=== PATIENT | female | born 1965 | race Caucasian/White ===

== ENCOUNTER 2020-09-13 18:43 | Emergency (ER) | payer SELFPAY ==
--- NOTE | ~2020-09-13 | CT_ITS ---
EXAMINATION: CT brain wo con DATE: 09/13/2020 19:32 INDICATION: Syncope. TECHNIQUE: Computed tomography (CT) of the head was performed without intravenous contrast. The mA wa s adjusted according to patient size. Iterative reconstruction technique was employed. The dose-lengt h product was 605.33 mGy-cm. COMPARISON: None FINDINGS: There is no intracranial hemorrhage, acute infarction, or abnormal intracranial mass lesion . The ventricles are normal in size. There is mild mucosal thickening in the paranasal sinuses. The o rbits are normal. The mastoid air cells are normal. IMPRESSION: 1. Normal brain. Reviewed, dictated and finalized at location A. IMPRESSION: 1. Normal brain.
[2020-09-13 18:59] VITALS: BP 107/60; PULSE 80; RESP 18; TEMP 36.3; O2SAT 98
--- NOTE | 2020-09-13 19:10 | ECG_ITS ---
Measurements Intervals Floral Rate: 78 P: 5 OR: 174 QRS: 45 QRSD: 82 T: 65 QT: 379 QTc: 432 Interpretive Statements SINUS RHYTHM BASELINE WANDER- II, III NORMAL ECG Electronically Signed On 09-14-2020 7:11:13 CDT by Yan Horton D.O.
--- NOTE | 2020-09-13 19:10 | ED.SYNCOPE ---
HPI - Syncope General Chief Complaint: Fall Stated Complaint: nausea,dizzy,passed out Time Seen by Provider: 09/13/20 19:05 Source: patient Mode of arrival: ambulatory Limitations: no limitations History of Present Illness HPI narrative: 55-year-old woman comes in today complaining of vomiting and head injury. She states that she had an episode of vomiting last night and went to bed. She states that sometime during the night she must have fallen because she found herself on the floor with a contusion on her left forehead. She has had a few other episodes of vomiting overnight but it has been able to tolerate oral fluids since 9:00 a.m. today. She denies headache, diarrhea, abdominal pain, dysuria, fever, cough or cold symptoms, shortness of breath, chest pain, previous similar symptoms. She has no history of seizures. MD complaint: loss of consciousness Onset (ago): hour(s) (12-15) Prodromal symptoms: none Witnessed: No Context: at rest Injuries sustained associated with event: face and head Current symptoms: none Treatments prior to arrival: none Related Data Allergies Allergy/AdvReac Type Severity Reaction Status Date / Time No Known Allergies Allergy Unverified 02/22/16 10:01 Review of Systems Constitutional: Constitutional: Denies chills and Denies fever(s) Eyes: Eyes: Denies change in vision and Denies photophobia ENT: Denies nasal congestion and Denies sore throat Cardiovascular: Cardiovascular: Denies chest pain and Denies radiating jaw, neck or arm pain Respiratory: Respiratory: Denies cough and Denies dyspnea Gastrointestinal: Gastrointestinal: Denies abdominal pain, Denies diarrhea, Reports nausea and Reports vomiting Genitourinary: Genitourinary: Denies dysuria and Denies urinary incontinence Musculoskeletal: Musculoskeletal: Denies arthralgias and Denies joint swelling Integumentary/Breasts: Skin/Breast: Denies pruritus, Denies erythema and Denies rash Neurologic: Denies vertigo, Denies dizziness, Reports syncope, Denies focal weakness and Reports weakness ( Generalized with fatigue) Hematologic/Lymphatic: Hematologic/Lymphatic: Denies easy bleeding and Denies easy bruising Allergic/Immunologic: Allergic/Immunologic: Denies lip swelling and Denies throat swelling [facility] Surgical History Surgical History (Updated 09/13/20 @ 19:20 by Kosta Barrera MD) H/O tubal ligation History of hip surgery left x3 Family History Family History (Updated 07/11/13 @ 09:33 by DOCTOR UNKNOWN) Other Family history of arthritis Family history of cardiovascular disease Hypertension Social History Social History Smoking status: Current every day smoker Alcohol intake: never Gender identity (if verbalized by the patient): Female Exam Const: General: healthy appearing, no acute distress and alert Orientation/consciousness: patient oriented x3 Limitations: no limitations HENMT: Head: normal to inspection and contusion left frontal Ears: TM's normal bilaterally and EAC's normal General nose exam: no nasal discharge noted Mouth: Yes moist mucous membranes Throat: posterior oropharynx normal Other: Mild tenderness and abrasion over the left zygoma. Mild tenderness over the bridge of nose with no swelling. Eyes: Conjunctivae: conjunctivae normal Pupils: Equal, round and reactive pupils present EOM: EOMs intact bilaterally Resp: Effort & Inspection: normal respiratory effort and not labored Auscultation: clear to auscultation bilaterally, no rales, no rhonchi and no wheezes Cardio: Rate: regular rate Rhythm: regular rhythm Heart sounds: no murmurs GI: Auscultation: normal bowel sounds Other: Nontender, nondistended. Skin: General skin exam: normal color, no jaundice and no pallor Rashes: no rashes Neuro: General: patient oriented x3, moves all extremities, no focal motor deficits and CN's II-XI intact bilaterally Spe
[2020-09-13] MEDS: SODIUM CHLORIDE 0.9% IV 1,000 ML 999 ML IV CONT (19:20)
[2020-09-13 19:24] LABS: Basophils Absolute Auto 0.02 K/mm3 (0.00-0.10); Basophils Percent Auto 0.4 % (0.0-1.0); Eosinophils Absolute Auto 0.05 K/mm3 (0.02-0.50); Eosinophils Percent Auto 0.9 % (1.0-6.0); Hematocrit 34.2 % (35.0-49.0); Hemoglobin 11.8 g/dL (12.0-15.0); Immature Granulocyte Absolute 0.02 K/mm3 (0.00-0.00); Immature Granulocyte Percent A 0.4 % (0.0-0.0); Lymphocytes Absolute Auto 1.28 K/mm3 (1.10-4.50); Lymphocytes Percent Auto 22.9 % (18.0-42.0); Mean Corpuscular HGB Conc 34.5 g/dL (32.0-36.0); Mean Corpuscular Hemoglobin 30.7 pg (27.0-31.0); Mean Corpuscular Volume 89.1 fL (78.0-102.0); Mean Platelet Volume 9.3 fl (9.2-11.8); Monocytes Absolute Auto 0.46 K/mm3 (0.10-0.90); Monocytes Percent Auto 8.2 % (2.0-11.0); Neutrophils Absolute Auto 3.8 K/mm3 (1.7-7.2); Neutrophils Percent Auto 67.2 % (50.0-70.0); Platelet Count Result 229 K/mm3 (150-420); Red Blood Count 3.84 M/mm3 (4.20-5.40); Red Cell Distribution Width 12.9 % (11.6-14.4); White Blood Count 5.6 K/mm3 (4.8-10.8)
[2020-09-13 19:37] LABS: D Dimer 0.33 mg/L (0.19-0.50)
[2020-09-13 19:42] LABS: Alanine Aminotransferase 16 U/L (14-59); Albumin Level 3.4 g/dL (3.4-5.0); Alkaline Phosphatase 75 U/L (46-116); Anion Gap 10 mmol/L (8-16); Aspartate Amino Transferase 13 U/L (15-37); Bilirubin,Total 0.8 mg/dL (0.00-1.00); Blood Urea Nitrogen 9 mg/dL (7-18); Calcium 8.1 mg/dL (8.5-10.1); Carbon Dioxide 25 mmol/L (21-32); Chloride 102 mmol/L (98-108); Estimated CRCL calculation 53 ml/min; Estimated Glomerular Filt Rate 60; Glucose 115 mg/dL (70-99); Osmolality Calculated 283 mOsm/kg (285-295); Potassium 2.9 mmol/L (3.5-5.1); Sodium 137 mmol/L (136-145); Total Protein 6.6 g/dL (6.4-8.2); Troponin I 4.7 ng/L (0.00-60.4)
[2020-09-13 19:44] LABS: Lactic Acid Reflex 0.7 mmol/L (0.4-2.0)
[2020-09-13 20:00] VITALS: BP 122/78
[2020-09-13 20:03] VITALS: BP 123/80; PULSE 86
[2020-09-13 20:05] VITALS: BP 120/72; PULSE 88
[2020-09-13 20:18] LABS: Add Urine Microscopic? YES; Appearance Urine Clear (Clear); Bilirubin Urine Negative (Negative); Blood Urine Negative (Negative); Color Urine Yellow (Yellow); Glucose Urine UA Negative (Negative); Ketones Urine Negative (Negative); Leukocyte Esterase Ur 1+ LEU/UL (Negative); Nitrate Urine Negative (Negative); Protein Urine Negative (Negative)
[2020-09-13 20:23] LABS: Bacteria Urine 1+ /hpf; RBC Urine 0-2 /hpf (0-2); Squamous Epithelial Cell Urine Few /hpf (Few)
[2020-09-13] MEDS: ONDANSETRON INJ 4 MG/2 ML VIAL IV PUSH (20:35)
[2020-09-13] MEDS: NITROFURANTOIN MONOHYD MACROCR 100 MG CAP PO (21:00)
[2020-09-13] MEDS: POTASSIUM CHLORIDE 20 MEQ TABLET 40 MEQ PO (21:00)
[2020-09-13 21:22] VITALS: BP 120/82; PULSE 78; RESP 18; TEMP 36.4; O2SAT 95
== END 2020-09-13 21:26 | disposition home or self-care (01) ==
PROVIDERS: Emergency Provider Emergency Medicine
DX: N30.00 Acute cystitis without hematuria (principal); R11.2 Nausea with vomiting, unspecified
CPT/HCPCS: 36415; 70450; 80053; 81001; 83605; 84484; 85025; 85380; 87086; 93005; 96361; 96374; 99284; A9270; J2405; J7030